=== PATIENT | female | born 1940 | race Caucasian/White ===

== ENCOUNTER 2019-11-13 18:04 | Observation (INO) ==
[2019-11-13 20:02] LABS: Basophils # 0.1 10*3/uL (0.0-0.2); Basophils % 1.1 % (0.0-0.8); Eosinophils % 0.4 % (0.00-10.9); Hematocrit 34.5 VOL% (35.7-47.0); Hemoglobin 11.6 GM/DL (12.0-16.0); Immature Granulocytes % 0.5 %; Immature Granulocytes Absolute 0.03 #; Lymphocytes # 1.8 10*3/uL (1.4-4.0); Lymphocytes % 32.1 % (21.3-54.2); Mean Corpuscular HGB Conc 33.6 GM/DL (32-36); Mean Corpuscular Volume 90.6 FL (87-102); Mean Platelet Volume 8.6 FL (9.6-12.0); Monocytes % 15.4 % (1.7-12.7); Neutrophils % 50.5 % (38.7-73.9); Platelet Count 479 T/CUMM (130-400); Red Blood Count 3.81 MC/CUMM (3.8-5.5); Red Cell Distribution Width 13.8 % (9.3-17.3); White Blood Count 5.5 T/CUMM (4-12)
[2019-11-13 20:18] LABS: Alanine Aminotransferase 58 U/L (13-56); Albumin 3.1 G/DL (3.4-5.0); Alkaline Phosphatase 102 U/L (45-117); Aspartate Amino Transferase 30 U/L (0-37); Bilirubin,Total < 0.39 MG/DL (0.2-1.0); Blood Urea Nitrogen 7 MG/DL (7-18); Calcium 8.9 MG/DL (8.5-10.1); Estimated Glom Filtration Rate 60 ML/MIN; Glucose 112 MG/DL (74-106); Osmolality,Calculated 256.9 MOS/KG (273-304); Total Protein 7.7 G/DL (6.4-8.3)
[2019-11-13 20:28] LABS: Lymphocytes 34 % (20-55); Platelet Estimate Increased; Segmented Neutrophils 52 % (50-85); Total Cells Counted 100
[2019-11-13] MEDS ORDERED: hydrALAZINE 20 MG/1 ML VIAL IV STA (21:02)
[2019-11-13] MEDS ORDERED: ONDANSETRON 4 MG/2 ML VIAL IV PRN (21:15)
[2019-11-13] MEDS ORDERED: diphenhydrAMINE CAP 25 MG CAPSULE PO PRN (21:15)
[2019-11-13] MEDS ORDERED: ZALEPLON 5 MG CAPSULE PO PRN (21:15)
[2019-11-13] MEDS ORDERED: guaiFENesin/DM ER 600-30 MG TABLET PO PRN (21:15)
[2019-11-13] MEDS ORDERED: GLUCAGON 1 MG VIAL IM PRN (21:15)
[2019-11-13] MEDS ORDERED: DEXTROSE 50% 25 GM/50 ML VIAL IV PRN (21:15)
[2019-11-13] MEDS ORDERED: ACETAMINOPHEN 325 MG TABLET PO PRN (21:15)
[2019-11-13] MEDS ORDERED: NICOTINE 21 MG/24 HR PATCH TRANSDERM PRN (21:15)
[2019-11-13] MEDS ORDERED: hydrALAZINE 20 MG/1 ML VIAL IV PRN (21:15)
[2019-11-13] MEDS ORDERED: ENOXAPARIN 80 MG/0.8 ML SYRINGE SUBCUT ONE (21:30)
[2019-11-13] MEDS ORDERED: SODIUM CHLORIDE 0.9% 1,000 ML IV SCH (22:30)
[2019-11-13 22:51] LABS: Bilirubin,Urine Negative (Negative); Blood, Urine Small mg/dL (Negative); Glucose,Urine (UA) Negative (Negative); Ketones,Urine Negative (Negative); Nitrite,Urine Negative (Negative); Protein,Urine Negative; RBC,Urine 3 /HPF (0-4); Urine Appearance CLEAR (Clear); Urine Color Straw (Yellow); Urine Specific Gravity 1.004 (1.001-1.035); Urine Urobilinogen < 2.0 EU/DL (0.2-1.0); WBC,Urine <1 /HPF (0-6)
[2019-11-13] MEDS ORDERED: SODIUM CHLORIDE 0.9% 1,000 ML IV STA (23:00)
[2019-11-13] MEDS ORDERED: SODIUM CHLORIDE 0.9% 500 ML IV STA (23:14)
[2019-11-14] MEDS ORDERED: INFLUENZA VIRUS VACCINE 0.5 ML SYRINGE IM ONE (02:50)
[2019-11-14 05:43] LABS: Basophils # 0.1 10*3/uL (0.0-0.2); Basophils % 0.7 % (0.0-0.8); Hematocrit 31.7 VOL% (35.7-47.0); Hemoglobin 10.6 GM/DL (12.0-16.0); Immature Granulocytes % 0.6 %; Immature Granulocytes Absolute 0.04 #; Lymphocytes # 1.3 10*3/uL (1.4-4.0); Lymphocytes % 18.4 % (21.3-54.2); Mean Corpuscular HGB Conc 33.4 GM/DL (32-36); Mean Corpuscular Volume 90.6 FL (87-102); Mean Platelet Volume 8.9 FL (9.6-12.0); Monocytes % 10.1 % (1.7-12.7); Neutrophils % 70.2 % (38.7-73.9); Platelet Count 428 T/CUMM (130-400); Red Cell Distribution Width 13.8 % (9.3-17.3); White Blood Count 6.8 T/CUMM (4-12)
[2019-11-14 05:57] LABS: INR 1.1; PT Patient Result 11.7 SECS (9.8-11.9); Partial Thromboplastin Time 37.6 SECS (23.9-33.8)
[2019-11-14 06:02] LABS: Calcium 8.1 MG/DL (8.5-10.1); Osmolality,Calculated 262.5 MOS/KG (273-304)
[2019-11-14] MEDS ORDERED: POTASSIUM CHLORIDE 20 MEQ TABLET PO PRN (07:19)
[2019-11-14] MEDS ORDERED: POTASSIUM CHLORIDE RIDER 10 MEQ in PREMIX 1 EACH IV PRN (07:19)
[2019-11-14 07:44] VITALS: BP 140/77
[2019-11-14] MEDS ORDERED: PANTOPRAZOLE 40 MG TABLET PO SCH (09:00)
[2019-11-14] MEDS ORDERED: carBAMazepine 200 MG TABLET PO SCH (09:00)
[2019-11-14] MEDS ORDERED: lisinopriL 10 MG TABLET PO SCH (09:00)
[2019-11-14] MEDS ORDERED: DILTIAZEM CD 120 MG CAPSULE PO SCH ×2 (09:00→21:00)
[2019-11-14] MEDS ORDERED: RIVAROXABAN 20 MG TABLET PO ONE (09:18)
[2019-11-14] MEDS ORDERED: traMADol 50 MG TABLET PO PRN (09:22)
[2019-11-14] MEDS ORDERED: ONDANSETRON 4 MG TABLET PO PRN (09:22)
[2019-11-14] MEDS ORDERED: PREGABALIN 50 MG CAPSULE PO SCH (09:25)
== END 2019-11-14 10:27 | disposition home or self-care (01) ==
LOC: N.ED 18:04 → N.EDINP 18:04 → N.4E 11-14 01:02
PROVIDERS: ADMIT Internal Medicine Geriatric Medicine; ATTEND Internal Medicine Geriatric Medicine

== ENCOUNTER 2020-02-21 11:32 | Observation (INO) ==
[2020-02-21] MEDS ORDERED: DEXTROSE 50% 25 GM/50 ML VIAL IV PRN (16:13)
[2020-02-21] MEDS ORDERED: GLUCAGON 1 MG VIAL IM PRN (16:13)
[2020-02-21] MEDS ORDERED: ACETAMINOPHEN 325 MG TABLET PO PRN (16:24)
[2020-02-21] MEDS ORDERED: ONDANSETRON 4 MG/2 ML VIAL IV PRN (16:24)
[2020-02-21] MEDS ORDERED: traMADol 50 MG TABLET PO PRN (16:31)
[2020-02-21] MEDS ORDERED: hydrALAZINE 20 MG/1 ML VIAL IV PRN (16:35)
[2020-02-21] MEDS: DEXTROSE 5% NACL 0.45% 1,000 ML IV SCH (17:41)
[2020-02-21] MEDS: lisinopriL 20 MG TABLET PO SCH (17:42)
[2020-02-21] MEDS: METOPROLOL TARTRATE 25 MG TABLET PO SCH ×2 (17:42→22:43)
[2020-02-21 17:44] LABS: Risk Ratio 3.25; Thyroid Stimulating Hormone 1.89 uIU/ml (0.358-3.74); VLDL CHOLESTEROL 14.2 MG/DL
[2020-02-21] MEDS ORDERED: RIVAROXABAN 20 MG TABLET PO SCH (18:00)
[2020-02-21] MEDS ORDERED: DILTIAZEM CD 120 MG CAPSULE PO SCH (21:00)
[2020-02-21] MEDS: carBAMazepine 200 MG TABLET PO SCH (21:17)
[2020-02-21] MEDS: BACLOFEN 10 MG TABLET PO SCH (21:17)
[2020-02-22 05:23] LABS: Basophils # 0.1 10*3/uL (0.0-0.2); Eosinophils # 0.1 10*3/uL (0.0-0.87); Hematocrit 37.5 VOL% (35.7-47.0); Hemoglobin 12.8 GM/DL (12.0-16.0); Immature Granulocytes % 0.2 %; Immature Granulocytes Absolute 0.01 #; Lymphocytes # 1.8 10*3/uL (1.4-4.0); Lymphocytes % 38.3 % (21.3-54.2); Mean Corpuscular HGB Conc 34.1 GM/DL (32-36); Mean Corpuscular Volume 94.9 FL (87-102); Mean Platelet Volume 9.3 FL (9.6-12.0); Monocytes % 12.9 % (1.7-12.7); Neutrophils % 46.6 % (38.7-73.9); Platelet Count 253 T/CUMM (130-400); Red Blood Count 3.95 MC/CUMM (3.8-5.5); Red Cell Distribution Width 14.6 % (9.3-17.3); White Blood Count 4.8 T/CUMM (4-12)
[2020-02-22 05:32] LABS: Calcium 8.6 MG/DL (8.5-10.1); Osmolality,Calculated 268.4 MOS/KG (273-304); Potassium 3.8 MMOL/L (3.5-5.1)
[2020-02-22] MEDS: DEXTROSE 5% NACL 0.45% 1,000 ML IV SCH (07:43)
[2020-02-22] MEDS ORDERED: lisinopriL 20 MG TABLET PO SCH (09:00)
[2020-02-22] MEDS ORDERED: POTASSIUM CHLORIDE 10 MEQ TABLET PO SCH (09:00)
[2020-02-22] MEDS: METOPROLOL TARTRATE 25 MG TABLET PO SCH (10:13)
[2020-02-22] MEDS: carBAMazepine 200 MG TABLET PO SCH (10:13)
[2020-02-22] MEDS: BACLOFEN 10 MG TABLET PO SCH (10:14)
[2020-02-22] MEDS: lisinopriL 20 MG TABLET PO SCH (10:14)
[2020-02-22 11:49] VITALS: BP 152/78
== END 2020-02-22 15:18 | disposition home or self-care (01) ==
LOC: INTOOBSV 13:34 → N.TELEN 13:34 → SUATTDRO 13:34
PROVIDERS: ADMIT Internal Medicine; ATTEND Emergency Medicine